=== PATIENT | male | born 1985 | race Caucasian/White ===

== ENCOUNTER 2018-02-09 20:46 | Emergency (ER) | payer BC, OTHER ==
--- NOTE | 2018-02-09 21:09 | EDM.PDOC ---
ED HPI GENERAL MEDICAL PROBLEM - General Chief Complaint: Skin Complaint Stated Complaint: abcess on stomach Time Seen by Provider: 02/09/18 21:03 Source of Information: Reports: Patient History Limitations: Reports: No Limitations - History of Present Illness INITIAL COMMENTS - FREE TEXT/NARRATIVE: HISTORY AND PHYSICAL: []32-year-old man presents with abdominal pain abscess History of Present Illness: []Patient looks like he has an infected hair follicle and mild diffuse erythema extending to 4 cm around this Review of Systems: As per history of present illness and below otherwise all systems reviewed and negative. Past medical history: As per history of present illness and as reviewed below otherwise noncontributory. Surgical history: As per history of present illness and as reviewed below otherwise noncontributory. Social history: No reported history of drug or alcohol abuse. Family history: As per history of present illness and as reviewed below otherwise noncontributory. Physical exam: Alert and oriented male answering questions appropriately in full sentences without any breath is exquisitely tender to touch his abdomen HEENT: Atraumatic, normocehpalic, pupils reactive, negative for conjunctival pallor or scleral icterus, mucous membranes moist, throat clear, neck supple, nontender, trachea midline. Lungs: Clear to auscultation, breath sounds equal bilaterally, chest non tender. Heart: S1S2, regular, negative for clicks, rubs, or JVD. Abdomen: Soft, nondistended, tender with erythema and heat radiating. Negative for masses or hepatossplenmegaly. Negative for costovertebral tenderness. Pelvis: Stable nontender. Genitourinary: Deferred. Rectal: Deferred Extremities: Atraumatic, negative for cords or calf pain. Neurovascular unremarkable. Neuro: Awake, alert, oriented. Cranial nerves II through XII unremarkable. Cerebellum unremarkable. Motor and sensory unremarkable throughout. Exam nonfocal. Diagnostics: [] Therapeutics: [] Impression: []Abscess Plan: []Discharge to home Hot compresses 3 times a day for 10 minutes each time Antibiotic therapy Bactrim DS two times a day 10 days Follow-up with your primary care provider Return to the emergency room instructed and discussed Definitive disposition and diagnosis as appropriate pending reevaluation and review of above. Onset: Sudden Duration: Day(s): (2) Location: Reports: Abdomen Quality: Reports: Throbbing Severity: Moderate Improves with: Reports: None Worsens with: Reports: None Associated Symptoms: Reports: No Other Symptoms - Related Data Allergies Allergy/AdvReac Type Severity Reaction Status Date / Time No Known Allergies Allergy Verified 02/09/18 21:02 Home Meds: Home Meds . [No Known Home Meds] 02/09/18 [History] ED ROS GENERAL - Review of Systems Review Of Systems: ROS reveals no pertinent complaints other than HPI. ED EXAM, SKIN/RASH Exam: See Below (see dictation) Departure - Departure Time of Disposition: 21:05 Disposition: Home, Self-Care 01 Condition: Good Clinical Impression: Abscess - Discharge Information Instructions: Skin Abscess Referrals: PCP,None [Primary Care Provider] - Additional Instructions: The following information is given to patients seen in the emergency department who are being discharged to home. This information is to outline your options for follow-up care. We provide all patients seen in our emergency department with a follow-up referral. The need for follow-up, as well as the timing and circumstances, are variable depending upon the specifics of your emergency department visit. If you don't have a primary care physician on staff, we will provide you with a referral. We always advise you to contact your personal physician following an emergency department visit to inform them of the circumstance of the visit and for follow-up with them and/or the need for any referrals to a consulting specialist. The emergency department will also refer you to a specialist when appropriate. This referral assures that you have the opportunity for followup care with a specialist. All of these measure are taken in an effort to provide you with optimal care, which includes your followup. Under all circumstances we always encourage you to contact your private physician who remains a resource for coordinating your care. When calling for followup care, please make the office aware that this follow-up is from your recent emergency room visit. If for any reason you are refused follow-up, please contact the [facility] emergency department at and asked to speak to the emergency department charge nurse. He had a skin abscess on your abdomen This is not ready to [place] Hot compresses 3 times a day 10 minutes each time will help to draw this abscess to the surface Antibiotics of Bactrim DS 1 tab twice daily for 10 days (instymed machine) Follow-up with your primary care provider Return to the emergency department as directed and discussed
== END 2018-02-09 21:22 | disposition home or self-care (01) ==
LOC: MW.ED 20:46
DX: L02.211 Cutaneous abscess of abdominal wall (principal)
CPT/HCPCS: 99283

== ENCOUNTER 2018-03-04 20:17 | Emergency (ER) | payer OTHER ==
--- NOTE | 2018-03-04 20:30 | EDM.PDOC ---
ED HPI GENERAL MEDICAL PROBLEM - General Chief Complaint: Skin Complaint Stated Complaint: FOLLOWING UP Time Seen by Provider: 03/04/18 20:18 Source of Information: Reports: Patient History Limitations: Reports: No Limitations - History of Present Illness INITIAL COMMENTS - FREE TEXT/NARRATIVE: HISTORY AND PHYSICAL: History of present illness: Patient is a 32-year-old male who presents to the emergency room today with complaints of a open sore to the low right abdomen. He states he was seen in our ER on 02/09/2018 for cellulitis; was placed on Bactrim DS x 10 days. Reports that that sore has healed and had completed the course of antibiotics approximately 10 days ago. Approximately 5 days ago he noticed a "zit" which metastasis, tender to touch and has moderate amount of serosanguineous drainage from the center pustule. He denies any fever, chills, chest pain, shortness of breath or cough. Denies any abdominal pain, nausea, vomiting, diarrhea or constipation. Patient is a resident from [place] (here working) and does have a primary caregiver which she sees as needed. Tdap uptodate. Review of systems: As per history of present illness and below otherwise all systems reviewed and negative. Past medical history: As per history of present illness and as reviewed below otherwise noncontributory. Surgical history: As per history of present illness and as reviewed below otherwise noncontributory. Social history: No reported history of drug or alcohol abuse. Family history: As per history of present illness and as reviewed below otherwise noncontributory. Physical exam: General: Well-developed and well-nourished 32-year-old male. Alert and oriented. Nontoxic appearing and in no acute distress. HEENT: Atraumatic, normocephalic, pupils equal and reactive bilaterally, negative for conjunctival pallor or scleral icterus, mucous membranes moist, throat clear, neck supple, nontender, trachea midline. No drooling or trismus noted. No meningeal signs Lungs: Clear to auscultation, breath sounds equal bilaterally, chest nontender. Heart: S1S2, regular rate and rhythm without overt murmur Abdomen: Soft, nondistended, nontender. Negative for masses or hepatosplenomegaly. Negative for costovertebral tenderness. Pelvis: Stable nontender. Genitourinary: Deferred. Rectal: Deferred. Skin: Localized area of erythematous nonfluctuant tissue, approximately the size of the palmar surface with a centralized area with moderate amount of Drainage. Appears consistent with a folliculitis, secondary cellulitis. Otherwise skin is intact, warm, dry. No lesions or rashes noted. Extremities: Atraumatic, negative for cords or calf pain. Neurovascular unremarkable. Neuro: Awake, alert, oriented. Cranial nerves II through XII unremarkable. Cerebellum unremarkable. Motor and sensory unremarkable throughout. Exam nonfocal. Notes: The area appears as a initial folliculitis with secondary cellulitis. Does not shave that area. We'll place patient on Bactrim DS. He declines the need for any pain medication but is agreeable to Toradol IM. Patient's blood pressure is elevated. He declines further evaluation of this at this time. States he will follow-up with his primary caregiver as he does return home next week. Signs and symptoms that would prompt him to return to the emergency room were reviewed and discussed. He is agreeable to plan of care. Denies any further questions at this time. Diagnostics: Wound culture Therapeutics: Rocephin, Toradol Impression: Follicutlitis, abdomen Cellulitis, abdomen Plan: 1. Please keep the area clean and dry. Continue to monitor for signs of infection. If not improving, return to the ED. 2. Take your antibiotic medication as directed. 3. Tylenol and/or ibuprofen as needed for pain management. Compresses to the area 3-4 times daily. 4. Follow-up with your primary caregiver as we discussed next week. Also have your blood pressure re-evaluated as we discussed. Return to the ED as needed and as discussed. Definitive disposition and diagnosis as appropriate pending reevaluation and review of above. - Related Data Allergies Allergy/AdvReac Type Severity Reaction Status Date / Time No Known Allergies Allergy Verified 02/09/18 21:02 Home Meds: Home Meds . [No Known Home Meds] 02/09/18 [History] Past Medical History - Past Health History Medical/Surgical History: Denies Medical/Surgical History - Infectious Disease History Infectious Disease History: Reports: Hepatitis A Social & Family History - Family History Family Medical History: Noncontributory - Caffeine Use Caffeine Use: Reports: Energy Drinks ED ROS GENERAL - Review of Systems Review Of Systems: ROS reveals no pertinent complaints other than HPI. ED EXAM, SKIN/RASH Exam: See Below (See dictation) Course - Vital Signs Last Recorded V/S: Last Vital Signs Temp 98.7 F 03/04/18 20:34 Pulse 85 03/04/18 20:34 Resp 18 03/04/18 20:34 BP 193/108 H 03/04/18 20:34 Pulse Ox 96 03/04/18 20:34 - Orders/Labs/Meds Orders: Active Orders 24 hr Category Date Time Status Sulfamethoxazole/Trimethoprim [Septra DS] Med 03/04/18 20:38 Once 1 tab PO ONETIME ONE Medication Orders Trimethoprim/Sulfamethoxazole (Septra Ds) 1 tab PO ONETIME ONE Stop: 03/04/18 20:39 Meds: Medications Generic Name Dose Route Start Last Admin Trade Name Freq PRN Reason Stop Dose Admin Trimethoprim/Sulfamethoxazole 1 tab 03/04/18 20:38 Septra Ds PO 03/04/18 20:39 ONETIME ONE Discontinued Medications Generic Name Dose Route Start Last Admin Trade Name Freq PRN Reason Stop Dose Admin Ceftriaxone Sodium 1,000 mg/ 4 mls @ 4 mls/sec 03/04/18 20:37 Lidocaine HCl IM 03/04/18 20:38 ONETIME ONE Ketorolac Tromethamine 60 mg 03/04/18 20:37 Toradol IM 03/04/18 20:38 ONETIME ONE Departure - Departure Time of Disposition: 20:51 Disposition: Home, Self-Care 01 Clinical Impression: Folliculitis Cellulitis Qualifiers: Site of cellulitis: trunk Site of cellulitis of trunk: abdominal wall Qualified Code(s): L03.311 - Cellulitis of abdominal wall - Discharge Information Referrals: PCP,None [Primary Care Provider] - Forms: ED Department Discharge Additional Instructions: The following information is given to patients seen in the emergency department who are being discharged to home. This information is to outline your options for follow-up care. We provide all patients seen in our emergency department with a follow-up referral. The need for follow-up, as well as the timing and circumstances, are variable depending upon the specifics of your emergency department visit. If you don't have a primary care physician on staff, we will provide you with a referral. We always advise you to contact your personal physician following an emergency department visit to inform them of the circumstance of the visit and for follow-up with them and/or the need for any referrals to a consulting specialist. The emergency department will also refer you to a specialist when appropriate. This referral assures that you have the opportunity for follow-up care with a specialist. All of these measure are taken in an effort to provide you with optimal care, which includes your follow-up. Under all circumstances we always encourage you to contact your private physician who remains a resource for coordinating your care. When calling for follow-up care, please make the office aware that this follow-up is from your recent emergency room visit. If for any reason you are refused follow-up, please contact the [facility] Emergency Department at and asked to speak to the emergency department charge nurse. [facility] [address] [place] [id number] 1. Please keep the area clean and dry. Continue to monitor for signs of infection. If not improving, return to the ED. 2. Take your antibiotic medication as directed. 3. Tylenol and/or ibuprofen as needed for pain management. Compresses to the area 3-4 times daily. 4. Follow-up with your primary caregiver as we discussed next week. Also have your blood pressure re-evaluated as we discussed. Return to the ED as needed and as discussed. - My Orders Last 24 Hours: My Active Orders 03/04/18 20:38 Sulfamethoxazole/Trimethoprim [Septra DS] 1 tab PO ONETIME ONE - Assessment/Plan Last 24 Hours: My Active Orders 03/04/18 20:38 Sulfamethoxazole/Trimethoprim [Septra DS] 1 tab PO ONETIME ONE
[2018-03-04] MEDS ORDERED: cefTRIAXone 1,000 MG in Lidocaine 1% 4 ML IM ONE (20:37)
[2018-03-04] MEDS ORDERED: Sulfamethoxazole/Trimethoprim 800-160 MG Tab PO ONE (20:38)
[2018-03-04] MEDS: Ketorolac 60 MG/2 ML SDV IM ONE ×2 (20:47→20:52)
== END 2018-03-04 21:25 | disposition home or self-care (01) ==
LOC: MW.ED 20:17
DX: L03.311 Cellulitis of abdominal wall (principal); L73.9 Follicular disorder, unspecified
CPT/HCPCS: 87070; 87077; 87186; 96372; 99283; A9270; J0696; J2001; J1885